=== PATIENT | female | born 1975 | race Caucasian/White ===

== ENCOUNTER 2017-09-24 13:19 | Emergency (ER) | payer MEDICAID ==
[2017-09-24] MEDS ORDERED: Sodium Chloride 0.9% 1,000 ML IV ONE (14:13)
[2017-09-24] MEDS ORDERED: Ondansetron 4 MG/2 ML SDV IVPUSH ONE (14:14)
[2017-09-24] MEDS ORDERED: methylPREDNISolone Sodium Succinate 125 MG/2 ML SDV IVPUSH ONE (14:15)
[2017-09-24] MEDS ORDERED: Ketorolac 30 MG/ML SDV ONE (14:18)
[2017-09-24 15:20] LABS: CHLORIDE,CL 102 mmol/L (98-115); SODIUM,NA 138 mmol/L (136-145)
[2017-09-24] MEDS ORDERED: HYDROmorphone 2 MG/ML SDV ONE (17:04)
[2017-09-24] MEDS ORDERED: HYDROmorphone 2 MG/ML SDV IVPUSH ONE (17:05)
[2017-09-24] MEDS ORDERED: Ondansetron 4 MG Tab.DIS ONE (18:01)
[2017-09-24] MEDS ORDERED: Ondansetron 4 MG Tab.DIS PO PRN (18:03)
--- NOTE | 2017-09-24 21:43 | EDM.PDOC ---
ED HPI GENERAL MEDICAL PROBLEM - General Chief Complaint: Abdominal Pain Stated Complaint: CHRON'S FLAIR UP Time Seen by Provider: 09/24/17 13:30 Source of Information: Reports: Patient History Limitations: Reports: No Limitations - History of Present Illness INITIAL COMMENTS - FREE TEXT/NARRATIVE: 6-year-old female presents to the emergency room brought in by her friend today with complaints of chronic abdominal pain that has gotten worse over the last 24 hours with associated nausea and vomiting and mild fever. Patient was recently diagnosed with Crohn's disease this past May she was started on oral prednisone and now is tapering down currently on 20 mg of prednisone daily. She does take hydrocodone for her abdominal pain. She has been seen by core blower who has essentially taken her off all her medications except the prednisone and is reevaluating her testing and findings next week. She does state that she does smoke marijuana in order to help some abdominal pain. She had a recent CT scan couple months ago while being evaluated in the ER. She denies bloody stools denies current diarrhea. She does notice that when she feels she has to have a bowel movement she only has mucus. She has not had much of an appetite today. She denies any recent or current infections. No upper respiratory complaints. She feels that she is dehydrated as she has not been able to keep much for fluids down today. She is complaining mainly of nausea at this time. She has not had any vomiting episodes since this morning. Onset: Gradual Duration: Chronic, Getting Worse Location: Reports: Abdomen Quality: Reports: Ache Severity: Moderate Improves with: Reports: Medication Associated Symptoms: Reports: Fever/Chills, Nausea/Vomiting Treatments OFFICER CAPTAIN: Reports: Other Medication(s) (norco, prednisone) - Related Data Allergies Allergy/AdvReac Type Severity Reaction Status Date / Time metronidazole [From Flagyl] Allergy Nausea and Verified 09/24/17 13:38 Vomiting morphine Allergy Hives Verified 09/24/17 13:38 Home Meds: Home Meds Hydrocodone/Acetaminophen [Hydrocodon-Acetaminophn 10-325] 1 tab PO Q4H PRN 01/02 [History] Prednisone [IJD: predniSONE] 20 mg PO ASDIRECTED 07/22/17 [History] Promethazine [Phenergan] 25 mg PO Q4H PRN 07/22/17 [History] busPIRone [Buspar] 5 mg PO BID 12/08/17 [History] Dicyclomine [Bentyl] 20 mg PO BID PRN 09/24/17 [History] Past Medical History Gastrointestinal History: Reports: Diverticulosis, Irritable Bowel Syndrome, Other (See Below) Other Gastrointestinal History: 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 2016 by core blower in [place], [place] 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 Denies: Chills, Diaphoresis HEENT: Reports: No Symptoms Respiratory: Reports: No Symptoms Cardiovascular: Reports: No Symptoms Endocrine: Reports: Fatigue. Denies: High Glucose GI/Abdominal: Reports: Abdominal Pain, Nausea, Vomiting. Denies: Black Stool, Bloody Stool, Diarrhea, Distension : Denies: Dysuria, Flank Pain, Hematuria Skin: Reports: No Symptoms Neurological: Reports: No Symptoms Psychiatric: Reports: No Symptoms Immunologic: Reports: No Symptoms ED EXAM, GI/ABD - Physical Exam Exam: See Below Exam Limited By: No Limitations General Appearance: Alert, WD/WN, No Apparent Distress Eyes: Bilateral: EOMI Ears: Normal External Exam Nose: Normal Inspection Throat/Mouth: Normal Inspection, Normal Oropharynx, Normal Voice, No Airway Compromise Head: Atraumatic, Normocephalic Neck: Normal Inspection, Supple, Non-Tender, Full Range of Motion. No: Lymphadenopathy (L), Lymphadenopathy (R) Respiratory/Chest: No Respiratory Distress, Lungs Clear Cardiovascular: Normal Peripheral Pulses, Regular Rate, Rhythm, No Murmur GI/Abdominal Exam: Normal Bowel Sounds, No Distention, No Mass, Tender (left lower quadrant) Back Exam: Normal Inspection Extremities: Normal Inspection, Normal Range of Motion, No Pedal Edema Neurological: Alert, Oriented, No Motor/Sensory Deficits Psychiatric: Normal Affect, Depressed Mood Skin Exam: Warm, Dry, Intact, No Rash, Ecchymosis Lymphatic: No Adenopathy Course - Vital Signs Last Recorded V/S: Last Vital Signs Temp 99.3 F 09/24/17 13:38 Pulse 100 09/24/17 13:38 Resp 20 09/24/17 13:38 BP 114/69 09/24/17 13:38 Pulse Ox 96 09/24/17 13:38 - Orders/Labs/Meds Orders: Active Orders 24 hr Category Date Time Status Ondansetron [Zofran ODT] Med 09/24/17 18:03 Active 4 mg PO Q6H PRN Medication Orders Ondansetron HCl (Zofran Odt) 4 mg PO Q6H PRN PRN Reason: Nausea/Vomiting Last Admin: 09/24/17 18:04 Dose: 4 mg Labs: Laboratory Tests 09/24/17 09/24/17 09/24/17 Range/Units 14:32 14:32 15:10 WBC 14.6 H (5.0-10.0) 10^3/uL RBC 4.85 (3.80-5.50) 10^6/uL Hgb 14.1 (12.0-16.0) g/dL Hct 43.8 (37.0-47.0) % MCV 90.3 (82.0-92.0) fL MCH 29.1 (27.0-31.0) pg MCHC 32.2 (32.0-36.0) g/dL RDW 13.6 (11.5-14.5) % Plt Count 205 (150-300) 10^3/uL MPV 7.3 L (7.4-10.4) fL Neut % (Auto) 91.9 H (50.0-70.0) % Lymph % (Auto) 7.2 L (20.0-40.0) % [place] % (Auto) 0.4 L (2.0-8.0) % Eos % (Auto) 0.1 L (1.0-3.0) % Baso % (Auto) 0.4 (0.0-1.0) % Neut # (Auto) 13.3 H (2.5-7.0) 10^3/uL Lymph # (Auto) 1.1 (1.0-4.0) 10^3/uL [place] # (Auto) 0.1 (0.1-0.8) 10^3/uL Eos # (Auto) 0.0 L (0.1-0.3) 10^3/uL Baso # (Auto) 0.1 (0.0-0.1) 10^3/uL Sodium 138 (136-145) mmol/L Potassium 4.6 (3.3-5.3) mmol/L Chloride 102 (98-115) mmol/L Carbon Dioxide 26.8 (21.0-32.0) mmol/L BUN 7 (6-25) mg/dL Creatinine 0.53 (0.51-1.17) mg/dL Est Cr Clr Drug Dosing TNP Estimated GFR (MDRD) > 60 mL/min Glucose 127 H (70-110) mg/dL Calcium 9.0 (8.7-10.3) mg/dL Total Bilirubin 0.2 (0.2-1.0) mg/dL AST 13 L (15-37) U/L ALT 14 (12-78) U/L Alkaline Phosphatase 75 (46-116) IU/L Total Protein 7.3 (6.4-8.2) g/dL Albumin 3.16 (3.00-4.80) g/dL Amylase 59 (25-125) U/L Lipase 103 (73-393) U/L Specimen Type Urincc Urine Color Yellow (YELLOW) Urine Appearance Clear (CLEAR) Urine pH 8.5 (5.0-9.0) Ur Specific [place] 1.015 (1.005-1.030) Urine Protein Negative (NEGATIVE) mg/dL Urine Glucose (UA) Negative (NEGATIVE) mg/dL Urine Ketones Negative (NEGATIVE) mg/dL Urine Occult Blood Negative (NEGATIVE) Urine Nitrite Negative (NEGATIVE) Urine Bilirubin Negative (NEGATIVE) Urine Urobilinogen 0.2 (0.2-1.0) E.U./dL Ur Leukocyte Esterase Negative (NEGATIVE) Urine RBC Not seen /HPF Urine WBC 0-5 /HPF Ur Epithelial Cells Rare /LPF Urine Bacteria Not seen (NONE TO FEW) /HPF Urine Opiates Screen (NEGATIVE) Ur Oxycodone Screen (NEGATIVE) Urine Methadone Screen (NEGATIVE) Ur Propoxyphene Screen (NEGATIVE) Ur Barbiturates Screen (NEGATIVE) Ur Tricyclics Screen (NEGATIVE) Ur Phencyclidine Scrn (NEGATIVE) Ur Amphetamine Screen (NEGATIVE) U Methamphetamines Scrn (NEGATIVE) U Benzodiazepines Scrn (NEGATIVE) U Cocaine Metab Screen (NEGATIVE) U Marijuana (THC) Screen (NEGATIVE) 09/24/17 Range/Units 15:10 WBC (5.0-10.0) 10^3/uL RBC (3.80-5.50) 10^6/uL Hgb (12.0-16.0) g/dL Hct (37.0-47.0) % MCV (82.0-92.0) fL MCH (27.0-31.0) pg MCHC (32.0-36.0) g/dL RDW (11.5-14.5) % Plt Count (150-300) 10^3/uL MPV (7.4-10.4) fL Neut % (Auto) (50.0-70.0) % Lymph % (Auto) (20.0-40.0) % [place] % (Auto) (2.0-8.0) % Eos % (Auto) (1.0-3.0) % Baso % (Auto) (0.0-1.0) % Neut # (Auto) (2.5-7.0) 10^3/uL Lymph # (Auto) (1.0-4.0) 10^3/uL [place] # (Auto) (0.1-0.8) 10^3/uL Eos # (Auto) (0.1-0.3) 10^3/uL Baso # (Auto) (0.0-0.1) 10^3/uL Sodium (136-145) mmol/L Potassium (3.3-5.3) mmol/L Chloride (98-115) mmol/L Carbon Dioxide (21.0-32.0) mmol/L BUN (6-25) mg/dL Creatinine (0.51-1.17) mg/dL Est Cr Clr Drug Dosing Estimated GFR (MDRD) mL/min Glucose (70-110) mg/dL Calcium (8.7-10.3) mg/dL Total Bilirubin (0.2-1.0) mg/dL AST (15-37) U/L ALT (12-78) U/L Alkaline Phosphatase (46-116) IU/L Total Protein (6.4-8.2) g/dL Albumin (3.00-4.80) g/dL Amylase (25-125) U/L Lipase (73-393) U/L Specimen Type Urine Color (YELLOW) Urine Appearance (CLEAR) Urine pH (5.0-9.0) Ur Specific [place] (1.005-1.030) Urine Protein (NEGATIVE) mg/dL Urine Glucose (UA) (NEGATIVE) mg/dL Urine Ketones (NEGATIVE) mg/dL Urine Occult Blood (NEGATIVE) Urine Nitrite (NEGATIVE) Urine Bilirubin (NEGATIVE) Urine Urobilinogen (0.2-1.0) E.U./dL Ur Leukocyte Esterase (NEGATIVE) Urine RBC /HPF Urine WBC /HPF Ur Epithelial Cells /LPF Urine Bacteria (NONE TO FEW) /HPF Urine Opiates Screen Positive H (NEGATIVE) Ur Oxycodone Screen Negative (NEGATIVE) Urine Methadone Screen Negative (NEGATIVE) Ur Propoxyphene Screen Negative (NEGATIVE) Ur Barbiturates Screen Negative (NEGATIVE) Ur Tricyclics Screen Negative (NEGATIVE) Ur Phencyclidine Scrn Negative (NEGATIVE) Ur Amphetamine Screen Negative (NEGATIVE) U Methamphetamines Scrn Negative (NEGATIVE) U Benzodiazepines Scrn Positive H (NEGATIVE) U Cocaine Metab Screen Negative (NEGATIVE) U Marijuana (THC) Screen Positive H (NEGATIVE) Meds: Medications Generic Name Dose Route Start Last Admin Trade Name Freq PRN Reason Stop Dose Admin Ondansetron HCl 4 mg 09/24/17 18:03 09/24/17 18:04 Zofran Odt PO 4 mg Q6H PRN Administration Nausea/Vomiting Discontinued Medications Generic Name Dose Route Start Last Admin Trade Name Freq PRN Reason Stop Dose Admin Hydromorphone HCl 2 mg 09/24/17 17:05 09/24/17 17:07 Dilaudid IVPUSH 09/24/17 17:06 2 mg ONETIME ONE Administration Hydromorphone HCl Confirm 09/24/17 17:04 Dilaudid Administered 09/24/17 17:05 Dose 2 mg .ROUTE .STK-MED ONE Sodium Chloride 1,000 mls @ 1,000 mls/hr 09/24/17 14:13 09/24/17 14:48 Normal Saline IV 09/24/17 15:12 1,000 mls/hr .BOLUS ONE Administration Ketorolac Tromethamine 30 mg 09/24/17 14:18 Toradol .ROUTE 09/24/17 14:19 .STK-MED ONE Methylprednisolone Sodium Succinate 125 mg 09/24/17 14:15 09/24/17 14:49 Solu-Medrol IVPUSH 09/24/17 14:16 125 mg ONETIME ONE Administration Ondansetron HCl 8 mg 09/24/17 14:14 09/24/17 14:48 Zofran IVPUSH 09/24/17 14:15 8 mg ONETIME ONE Administration Ondansetron HCl Confirm 09/24/17 18:01 Zofran Odt Administered 09/24/17 18:02 Dose 12 mg .ROUTE .STK-MED ONE - Re-Assessments/Exams Free Text/Narrative Re-Assessment/Exam: 09/24/17 1 L normal saline IV fluids was given. Toradol 30mg IV was given patient reports that her pain improved to a 6 out of 10. On arrival she felt her pain was an 8 out of 10 2 mg of IV Dilaudid was given and patient now states that her pain was significantly improved at 1 out of 10. Departure - Departure Time of Disposition: 18:10 Disposition: Home, Self-Care 01 Condition: Fair Clinical Impression: Abdominal pain despite therapy for Crohn's disease Vomiting Qualifiers: Vomiting type: unspecified Vomiting Intractability: non-intractable Nausea presence: with nausea Qualified Code(s): R11.2 - Nausea with vomiting, unspecified - Discharge Information Instructions: Abdominal Pain, Adult, [id number], Nausea and Vomiting, Adult, [id number] Referrals: Shannan Nelson PA-C [Primary Care Provider] - Forms: ED Department Discharge Additional Instructions: 1. Rest, encourage continuing with oral hydration. 2. Zofran 4 mg ODT as needed for nausea. 3. Continue with her medications as prescribed 4. Follow-up appointment with your gravel machine operator next week as scheduled. - My Orders Last 24 Hours: My Active Orders 09/24/17 18:03 Ondansetron [Zofran ODT] 4 mg PO Q6H PRN - Assessment/Plan Last 24 Hours: My Active Orders 09/24/17 18:03 Ondansetron [Zofran ODT] 4 mg PO Q6H PRN Assessment:: Abdominal pain Nausea vomiting History of Crohn's disease Plan: 1. Rest, encourage continuing with oral hydration. 2. Zofran 4 mg ODT as needed for nausea. 3. Continue with her medications as prescribed 4. Follow-up appointment with your gravel machine operator next week as scheduled.
== END 2017-09-24 18:10 | disposition home or self-care (01) ==
LOC: KA.ED 13:19
DX: K50.90 Crohn's disease, unspecified, without complications (principal); F17.210 Nicotine dependence, cigarettes, uncomplicated; Z88.5 Allergy status to narcotic agent; Z88.8 Allergy status to other drugs, medicaments and biological substances
CPT/HCPCS: 36415; 80053; 80305; 81001; 82150; 83690; 85025; 96361; 96374; 96375; 99284; A9270; J1170; J2405; J2930; J7030

== ENCOUNTER 2017-10-12 08:47 | Emergency (ER) | payer MEDICAID ==
[2017-10-12] MEDS ORDERED: Sodium Chloride 0.9% 1,000 ML IV ONE ×2 (08:59→11:36)
[2017-10-12] MEDS ORDERED: Sodium Chloride 0.9% 5 ML Syringe FLUSH PRN (08:59)
[2017-10-12] MEDS ORDERED: Ondansetron 4 MG/2 ML SDV IVPUSH ONE (09:03)
[2017-10-12] MEDS ORDERED: HYDROmorphone 1 MG/ML Syringe IVPUSH ONE (09:03)
--- NOTE | 2017-10-12 09:03 | EDM.PDOC ---
<BlakeFredy pandya - Last Filed: 10/12/17 09:32> ED HPI GENERAL MEDICAL PROBLEM - General Chief Complaint: Abdominal Pain Stated Complaint: abdominal pain Time Seen by Provider: 10/12/17 08:58 Source of Information: Reports: Patient - History of Present Illness INITIAL COMMENTS - FREE TEXT/NARRATIVE: 42 YO WF with PMH of IBS who had a colonoscopy 10/09/2017 in [place] and has confirmed Crohn's dz after biopsy. Pt complaining of LLQ abdominal pain with vomiting since her colonscopy. Pt reports this is the same pain she has when she develops her IBS exacerbations/flares. Pt reports fever/chills at home. Pt denies any bloody or dark stools. Pt reports she is able to pass gas but no bowel movements since colonoscope 3 days ago. Onset Date: 10/09/17 Duration: Day(s): (3) Location: Reports: Abdomen Quality: Reports: Ache Severity: Moderate Improves with: Reports: Rest Worsens with: Reports: Movement Associated Symptoms: Reports: Fever/Chills, Nausea/Vomiting Abdominal Pain Score (Numeric/FACES): 10 - Related Data Allergies Allergy/AdvReac Type Severity Reaction Status Date / Time metronidazole [From Flagyl] Allergy Nausea and Verified 10/12/17 09:07 Vomiting morphine Allergy Headache Verified 10/12/17 09:08 Home Meds: Home Meds Hydrocodone/Acetaminophen [Hydrocodon-Acetaminophn 10-325] 1 tab PO Q4H PRN 01/02 [History] Prednisone [IJD: predniSONE] 20 mg PO ASDIRECTED 07/22/17 [History] Promethazine [Phenergan] 25 mg PO Q4H PRN 07/22/17 [History] busPIRone [Buspar] 5 mg PO BID 08/25/17 [History] Dicyclomine [Bentyl] 20 mg PO BID PRN 09/24/17 [History] Past Medical History Gastrointestinal History: Reports: Diverticulosis, Irritable Bowel Syndrome, Other (See Below) Other Gastrointestinal History: 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 2016 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 in [place], [place] [employer] History: Reports: Psychiatric History: Reports: Anxiety - Past Surgical History GI Surgical History: Reports: Colonoscopy Social & Family History - Tobacco Use Smoking Status *Q: Unknown Ever Smoked Years of Tobacco use: 25 Packs/Tins Daily: 0.5 Second Hand Smoke Exposure: Yes - Caffeine Use Caffeine Use: Reports: None Caffeine Use Comment: did not ask - Recreational Drug Use Recreational Drug Use: Yes Drug Use in Last 12 Months: No Recreational Drug Type: Reports: Marijuana/Hashish Recreational Drug Use Frequency: Socially ED ROS GENERAL - Review of Systems Review Of Systems: See Below Constitutional: Reports: Fever, Chills, Malaise Respiratory: Reports: No Symptoms Cardiovascular: Reports: No Symptoms Endocrine: Reports: No Symptoms GI/Abdominal: Reports: Abdominal Pain (LLQ), Nausea, Vomiting : Reports: No Symptoms Musculoskeletal: Reports: No Symptoms Skin: Reports: No Symptoms Neurological: Reports: No Symptoms Psychiatric: Reports: No Symptoms Hematologic/Lymphatic: Reports: No Symptoms Immunologic: Reports: No Symptoms ED EXAM, GI/ABD - Physical Exam Exam: See Below Exam Limited By: No Limitations General Appearance: Alert, WD/WN, No Apparent Distress Head: Atraumatic, Normocephalic Neck: Normal Inspection, Supple, Non-Tender, Full Range of Motion Respiratory/Chest: No Respiratory Distress, Lungs Clear, Normal Breath Sounds, No Accessory Muscle Use, Chest Non-Tender Cardiovascular: Normal Peripheral Pulses, Regular Rate, Rhythm, No Edema, No Gallop, No JVD, No Murmur, No Rub GI/Abdominal Exam: Normal Bowel Sounds, Soft, No Organomegaly, No Distention, No Abnormal Bruit, No Mass, Pelvis Stable, Tender (LLQ) Back Exam: Normal Inspection, Full Range of Motion, NT Extremities: Normal Inspection, Normal Range of Motion, Non-Tender, Normal Capillary Refill, No Pedal Edema Neurological: Alert, Oriented, CN II-XII Intact, Normal Cognition, Normal Gait, Normal Reflexes, No Motor/Sensory Deficits Psychiatric: Normal Affect, Normal Mood Skin Exam: Warm, Dry, Intact, Normal Color, No Rash Lymphatic: No Adenopathy Course - Vital Signs Last Recorded V/S: Last Vital Signs Temp 97.8 F 10/12/17 09:09 Pulse 77 10/12/17 11:48 Resp 18 10/12/17 11:48 BP 109/61 10/12/17 11:48 Pulse Ox 96 10/12/17 11:48 - Orders/Labs/Meds Orders: Active Orders 24 hr Category Date Time Status Peripheral IV Care [RC] . DIRECTED Care 10/12/17 08:59 Active Abdomen Pelvis w Cont [CT] Stat Exams 10/12/17 09:03 Taken Ciprofloxacin in D5W [Cipro in D5W 400 MG/200 ML] 400 Med 10/12/17 12:47 Ordered mg Premix Bag 1 bag IV ONETIME HYDROmorphone [Dilaudid] Med 10/12/17 10:45 Active 1 mg IVPUSH ONETIME Ketorolac [Toradol] Med 10/12/17 10:45 Active 30 mg IVPUSH ONETIME Ondansetron [Zofran] Med 10/12/17 10:45 Active 4 mg IVPUSH ONETIME Sodium Chloride 0.9% [Normal Saline] 250 ml Med 10/12/17 13:00 Active IV ASDIRECTED Sodium Chloride 0.9% [Syrex Flush] Med 10/12/17 08:59 Active 5 ml FLUSH Q8HR PRN metroNIDAZOLE/Normal Saline [Flagyl 500 MG in NS 100 ML Med 10/12/17 12:47 Ordered ] 500 mg Premix Bag 1 bag IV ONETIME Peripheral IV Insertion Adult [OM.PC] Routine Oth 10/12/17 08:59 Ordered Medication Orders Hydromorphone HCl (Dilaudid) 1 mg IVPUSH ONETIME [facility] Last Admin: 10/12/17 10:53 Dose: 1 mg Ciprofloxacin/Dextrose 400 mg/ (Premix) 200 mls @ 200 mls/hr IV ONETIME ONE Stop: 10/12/17 13:46 Metronidazole 500 mg/ Premix 100 mls @ 100 mls/hr IV ONETIME ONE Stop: 10/12/17 13:46 Last Admin: 10/12/17 12:52 Dose: 100 mls/hr Sodium Chloride (Normal Saline) 250 mls @ 125 mls/hr IV ASDIRECTED DESTINY Last Admin: 10/12/17 12:56 Dose: 125 mls/hr Ketorolac Tromethamine (Toradol) 30 mg IVPUSH ONETIME DESTINY Last Admin: 10/12/17 10:46 Dose: 30 mg Ondansetron HCl (Zofran) 4 mg IVPUSH ONETIME DESTINY Last Admin: 10/12/17 10:42 Dose: 4 mg Sodium Chloride (Syrex Flush) 5 ml FLUSH Q8HR PRN PRN Reason: Keep Vein Open Labs: Laboratory Tests 10/12/17 10/12/17 10/12/17 Range/Units 09:15 09:15 09:15 WBC 11.7 H (5.0-10.0) 10^3/uL RBC 4.76 (3.80-5.50) 10^6/uL Hgb 14.4 (12.0-16.0) g/dL Hct 40.0 (37.0-47.0) % MCV 84.2 (82.0-92.0) fL MCH 30.4 (27.0-31.0) pg MCHC 36.1 H (32.0-36.0) g/dL RDW 12.9 (11.5-14.5) % Plt Count 231 (150-300) 10^3/uL MPV 6.5 L (7.4-10.4) fL Add Manual Diff Yes Neutrophils % (Manual) 66 (50-70) % Lymphocytes % (Manual) 24 (20-40) % Monocytes % (Manual) 10 H (2-8) % Sodium 143 (136-145) mmol/L Potassium 3.6 (3.3-5.3) mmol/L Chloride 105 (98-115) mmol/L Carbon Dioxide 27.3 (21.0-32.0) mmol/L BUN 6 (6-25) mg/dL Creatinine 0.55 (0.51-1.17) mg/dL Est Cr Clr Drug Dosing 97.66 mL/min Estimated GFR (MDRD) > 60 mL/min Glucose 97 (70-110) mg/dL Calcium 8.9 (8.7-10.3) mg/dL Total Bilirubin 0.1 L (0.2-1.0) mg/dL AST 14 L (15-37) U/L ALT 16 (12-78) U/L Alkaline Phosphatase 63 (46-116) IU/L C-Reactive Protein 2.5 H (0.0-0.9) mg/dL Total Protein 6.7 (6.4-8.2) g/dL Albumin 2.96 L (3.00-4.80) g/dL Lipase 191 (73-393) U/L HCG, Qual Negative (NEGATIVE) Specimen Type Urine Color (YELLOW) Urine Appearance (CLEAR) Urine pH (5.0-9.0) Ur Specific [place] (1.005-1.030) Urine Protein (NEGATIVE) mg/dL Urine Glucose (UA) (NEGATIVE) mg/dL Urine Ketones (NEGATIVE) mg/dL Urine Occult Blood (NEGATIVE) Urine Nitrite (NEGATIVE) Urine Bilirubin (NEGATIVE) Urine Urobilinogen (0.2-1.0) E.U./dL Ur Leukocyte Esterase (NEGATIVE) Urine RBC /HPF Urine WBC /HPF Ur Epithelial Cells /LPF Urine Bacteria (NONE TO FEW) /HPF Urine Yeast (NEGATIVE) /HPF 10/12/17 Range/Units 11:05 WBC (5.0-10.0) 10^3/uL RBC (3.80-5.50) 10^6/uL Hgb (12.0-16.0) g/dL Hct (37.0-47.0) % MCV (82.0-92.0) fL MCH (27.0-31.0) pg MCHC (32.0-36.0) g/dL RDW (11.5-14.5) % Plt Count (150-300) 10^3/uL MPV (7.4-10.4) fL Add Manual Diff Neutrophils % (Manual) (50-70) % Lymphocytes % (Manual) (20-40) % Monocytes % (Manual) (2-8) % Sodium (136-145) mmol/L Potassium (3.3-5.3) mmol/L Chloride (98-115) mmol/L Carbon Dioxide (21.0-32.0) mmol/L BUN (6-25) mg/dL Creatinine (0.51-1.17) mg/dL Est Cr Clr Drug Dosing mL/min Estimated GFR (MDRD) mL/min Glucose (70-110) mg/dL Calcium (8.7-10.3) mg/dL Total Bilirubin (0.2-1.0) mg/dL AST (15-37) U/L ALT (12-78) U/L Alkaline Phosphatase (46-116) IU/L C-Reactive Protein (0.0-0.9) mg/dL Total Protein (6.4-8.2) g/dL Albumin (3.00-4.80) g/dL Lipase (73-393) U/L HCG, Qual (NEGATIVE) Specimen Type Urinvoid Urine Color Yellow (YELLOW) Urine Appearance Clear (CLEAR) Urine pH 5.5 (5.0-9.0) Ur Specific [place] 1.010 (1.005-1.030) Urine Protein Negative (NEGATIVE) mg/dL Urine Glucose (UA) Negative (NEGATIVE) mg/dL Urine Ketones Negative (NEGATIVE) mg/dL Urine Occult Blood Negative (NEGATIVE) Urine Nitrite Negative (NEGATIVE) Urine Bilirubin Negative (NEGATIVE) Urine Urobilinogen 0.2 (0.2-1.0) E.U./dL Ur Leukocyte Esterase Negative (NEGATIVE) Urine RBC 0-5 /HPF Urine WBC 0-5 /HPF Ur Epithelial Cells Few /LPF Urine Bacteria Rare (NONE TO FEW) /HPF Urine Yeast Few H (NEGATIVE) /HPF Meds: Medications Generic Name Dose Route Start Last Admin Trade Name Freq PRN Reason Stop Dose Admin Hydromorphone HCl 1 mg 10/12/17 10:45 10/12/17 10:53 Dilaudid IVPUSH 1 mg ONETIME DESTINY Administration Ciprofloxacin/Dextrose 400 mg/ 200 mls @ 200 mls/hr 10/12/17 12:47 Premix IV 10/12/17 13:46 ONETIME ONE Metronidazole 500 mg/ Premix 100 mls @ 100 mls/hr 10/12/17 12:47 10/12/17 12: 52 IV 10/12/17 13:46 100 mls/hr ONETIME ONE Administration Sodium Chloride 250 mls @ 125 mls/hr 10/12/17 13:00 10/12/17 12:56 Normal Saline IV 125 mls/hr ASDIRECTED DESTINY Administration Ketorolac Tromethamine 30 mg 10/12/17 10:45 10/12/17 10:46 Toradol IVPUSH 30 mg ONETIME DESTINY Administration Ondansetron HCl 4 mg 10/12/17 10:45 10/12/17 10:42 Zofran IVPUSH 4 mg ONETIME DESTINY Administration Sodium Chloride 5 ml 10/12/17 08:59 Syrex Flush FLUSH Q8HR PRN Keep Vein Open Discontinued Medications Generic Name Dose Route Start Last Admin Trade Name Freq PRN Reason Stop Dose Admin Hydromorphone HCl 1 mg 10/12/17 09:03 10/12/17 09:25 Dilaudid IVPUSH 10/12/17 09:04 1 mg ONETIME ONE Administration Sodium Chloride 1,000 mls @ 999 mls/hr 10/12/17 08:59 10/12/17 09:22 Normal Saline IV 10/12/17 09:59 999 mls/hr .BOLUS ONE Administration Sodium Chloride 1,000 mls @ 999 mls/hr 10/12/17 11:36 10/12/17 11:38 Normal Saline IV 10/12/17 12:36 999 mls/hr .BOLUS ONE Administration Ondansetron HCl 4 mg 10/12/17 09:03 10/12/17 09:23 Zofran IVPUSH 10/12/17 09:04 4 mg ONETIME ONE Administration Departure - Departure Time of Disposition: 09:34 Disposition: Home, Self-Care 01 Clinical Impression: Acute left lower quadrant pain Crohn's colitis Qualifiers: Digestive disease complication type: with abscess Qualified Code(s): K50.114 - Crohn's disease of large intestine with abscess - Discharge Information Referrals: Shannan Nelson PA-C [Primary Care Provider] - Forms: ED Department Discharge Additional Instructions: 1. Take the medications as directed and discussed. Try to avoid using the Tramadol if possible to avoid increased risk of obstruction from constipation. 2. Take Zofran as needed for nausea and vomiting and prior to taking the Metronidazole. 3. Clear liquid diet for two more days. 4. Call the GI clinic on Monday with update and their recommendation at that point. 5. Follow up with GI in two weeks or as instructed by them. - My Orders Last 24 Hours: My Active Orders 10/12/17 10:45 HYDROmorphone [Dilaudid] 1 mg IVPUSH ONETIME Ketorolac [Toradol] 30 mg IVPUSH ONETIME Ondansetron [Zofran] 4 mg IVPUSH ONETIME 10/12/17 12:47 Ciprofloxacin in D5W [Cipro in D5W 400 MG/200 ML] 400 mg Premix Bag 1 bag IV ONETIME metroNIDAZOLE/Normal Saline [Flagyl 500 MG in NS 100 ML] 500 mg Premix Bag 1 bag IV ONETIME 10/12/17 13:00 Sodium Chloride 0.9% [Normal Saline] 250 ml IV ASDIRECTED - Assessment/Plan Last 24 Hours: My Active Orders 10/12/17 10:45 HYDROmorphone [Dilaudid] 1 mg IVPUSH ONETIME Ketorolac [Toradol] 30 mg IVPUSH ONETIME Ondansetron [Zofran] 4 mg IVPUSH ONETIME 10/12/17 12:47 Ciprofloxacin in D5W [Cipro in D5W 400 MG/200 ML] 400 mg Premix Bag 1 bag IV ONETIME metroNIDAZOLE/Normal Saline [Flagyl 500 MG in NS 100 ML] 500 mg Premix Bag 1 bag IV ONETIME 10/12/17 13:00 Sodium Chloride 0.9% [Normal Saline] 250 ml IV ASDIRECTED Assessment:: 1. Abdominal pain- discussed with ER provider- Cuong Minaya- awaiting labs, CT abd/pelvis. <Gonzalo Minaya D - Last Filed: 10/12/17 13:30> ED EXAM, GI/ABD - Physical Exam Eyes: Bilateral: Normal Appearance, EOMI Throat/Mouth: Normal Lips, Normal Voice, No Airway Compromise Course - Re-Assessments/Exams Free Text/Narrative Re-Assessment/Exam: 10/12/17 11:37 [facility] Patient tells me she hasn't eaten anything for the last 4 days and has no appetite. She was clear liquid only on Monday (colonoscopy prep). Had the colonoscopy on Monday (10/10). She's had known Crohns since May when it was diagnosed along with Ulcerative Colitis and Diverticulitis in [place]. She's been on Prednisone 40 mg daily and they tried another medication (?) which didn't work so resumed the prednisone for awhile. Last evening she tried some beef broth and 7-up but couldn't keep them down. She has drank about 16-20 oz of water daily since the colonoscopy. She is passing lots of gas. No bowel movements but she had the urge several times this morning but only a little mucus on the toilet paper. She only urinates twice a day now. She keeps some water down with Zofran ODT. Compazine didn't help because she vomited it up right away. Re-examination of abdomen reveals tenderness throughout primarily extending from LLQ. Bowel sounds are very active in LLQ. CT shows: evidence of active Crohn's and abscess or dilated loop of bowel in pelvis. The first dose of Dilaudid dropped pain from 10 to 6 and then after the CT back up to 8. After second dose of Dilaudid along with Toradol pain is 4-5. Vitals are stable and patient is afebrile in ER but says yesterday at home she had 99-100 temp. 10/12/17 12:49 I discussed case with JAQUELINE Shaver at [facility] in [place] with Dr. Leslie. This is patient's GI provider. Not knowing for sure if there is an abscess they want to cover with antibiotics but also feel that the CT findings are entirely as expected with her Crohn's. They recommended a regimen of Cipro and Metronidazole along with her daily Prednisone 40 mg, clear liquid diet for 2 more days, Tylenol prn, no narcotics to avoid constipation/ obstruction (occasional Tramadol if absolutely necessary), call them on Monday and return to see them in two weeks. Patient has N/V with oral metronidazole but the GI provider wants her to still take it using nausea medication. I discussed with patient that this is the plan GI recommends to get through this Crohn's flare and hopefully it will be more manageable and tolerable in the near future. She verbalizes understanding. 10/12/17 13:30 Patient discharged in stable condition. Departure - Departure Time of Disposition: 13:28 Condition: Good
[2017-10-12 09:47] LABS: CHLORIDE,CL 105 mmol/L (98-115); SODIUM,NA 143 mmol/L (136-145)
[2017-10-12] MEDS ORDERED: Ondansetron 4 MG/2 ML SDV IVPUSH SCH (10:45)
[2017-10-12] MEDS ORDERED: HYDROmorphone 1 MG/ML Syringe IVPUSH SCH (10:45)
[2017-10-12] MEDS ORDERED: Ketorolac 30 MG/ML SDV IVPUSH SCH (10:45)
[2017-10-12] MEDS ORDERED: metroNIDAZOLE/Normal Saline 500 MG in Premix Bag 1 BAG IV ONE (12:47)
[2017-10-12] MEDS ORDERED: Ciprofloxacin in D5W 400 MG in Premix Bag 1 BAG IV ONE ×2 (12:47)
[2017-10-12] MEDS ORDERED: Sodium Chloride 0.9% 250 ML IV SCH (13:00)
[2017-10-12] MEDS ORDERED: Ondansetron 4 MG Tab.DIS PO SCH (14:45)
== END 2017-10-12 15:20 | disposition home or self-care (01) ==
LOC: KA.ED 08:47
DX: K50.114 Crohn's disease of large intestine with abscess (principal); Z88.1 Allergy status to other antibiotic agents; Z88.5 Allergy status to narcotic agent
CPT/HCPCS: 36415; 74177; 80053; 81001; 83690; 84703; 85025; 86140; 96361; 96374; 96375; 96376; 99284; J0744; J1170; J1885; J2405; J7030; J7050

== ENCOUNTER 2017-10-15 20:55 | Emergency (ER) | payer MEDICAID ==
[2017-10-15] MEDS ORDERED: Ondansetron 4 MG/2 ML SDV IVPUSH ONE (21:28)
[2017-10-15] MEDS ORDERED: Ketorolac 30 MG/ML SDV IVPUSH ONE (21:28)
--- NOTE | 2017-10-15 21:29 | EDM.PDOC ---
ED HPI GENERAL MEDICAL PROBLEM - General Chief Complaint: Abdominal Pain Stated Complaint: abd pain Time Seen by Provider: 10/15/17 21:10 Source of Information: Reports: Patient, Family (mom) History Limitations: Reports: No Limitations - History of Present Illness INITIAL COMMENTS - FREE TEXT/NARRATIVE: Patient presents with continuing LLQ abdominal pain related to Crohn's exacerbation. She was here 3 days ago with this and has been using the Tramadol and Zofran vs Promethazine but this evening the pain is worse. She has been passing small amounts of stool 5-6 times a day and eating a little mostly crackers and some pork roast. She has vomited a couple times too. Abdomen Pain Score (Numeric/FACES): 10 - Related Data Allergies Allergy/AdvReac Type Severity Reaction Status Date / Time metronidazole [From Flagyl] Allergy Nausea and Verified 10/15/17 20:58 Vomiting morphine Allergy Headache Verified 10/15/17 20:58 Home Meds: Home Meds Hydrocodone/Acetaminophen [Hydrocodon-Acetaminophn 10-325] 1 tab PO Q4H PRN 01/02 [History] Prednisone [IJD: predniSONE] 20 mg PO ASDIRECTED 07/22/17 [History] Promethazine [Phenergan] 25 mg PO Q4H PRN 07/22/17 [History] busPIRone [Buspar] 5 mg PO BID 08/25/17 [History] Dicyclomine [Bentyl] 20 mg PO BID PRN 09/24/17 [History] Ciprofloxacin HCl [Cipro] 500 mg PO BID 10/15/17 [History] Past Medical History Gastrointestinal History: Reports: Diverticulosis, Irritable Bowel Syndrome, Other (See Below) Other Gastrointestinal History: 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 2016 by filter bed placer in [place], [place] Genitourinary History: Reports: None [employer] History: Reports: Psychiatric History: Reports: Anxiety, Depression, Panic Attack Dermatologic History: Reports: Eczema - Infectious Disease History Infectious Disease History: Reports: Chicken Pox - Past Surgical History GI Surgical History: Reports: Colonoscopy, EGD Female Surgical History: Reports: Tubal Ligation Dermatological Surgical History: Reports: None Social & Family History - Tobacco Use Smoking Status *Q: Current Every Day Smoker Years of Tobacco use: 15 Packs/Tins Daily: 0.5 Second Hand Smoke Exposure: Yes - Caffeine Use Caffeine Use: Reports: Coffee, Soda Other Caffeine Use: regular Caffeine Use Comment: did not ask - Recreational Drug Use Recreational Drug Use: Yes Drug Use in Last 12 Months: No Recreational Drug Type: Reports: Marijuana/Hashish Recreational Drug Use Frequency: Rarely ED ROS GENERAL - Review of Systems Review Of Systems: See Below Constitutional: Denies: Fever, Chills, Weakness HEENT: Reports: No Symptoms Respiratory: Denies: Shortness of Breath, Cough Cardiovascular: Denies: Chest Pain, Syncope Endocrine: Reports: No Symptoms GI/Abdominal: Reports: Abdominal Pain, Decreased Appetite (still decreased but improved from 3 days ago), Nausea, Vomiting. Denies: Anorexia, Black Stool, Bloody Stool, Constipation, Diarrhea : Denies: Dysuria, Flank Pain Musculoskeletal: Reports: No Symptoms Skin: Denies: Cyanosis, Jaundice, Mottled, Pallor, Diaphoresis Neurological: Denies: Confusion, Dizziness, Headache, Seizure, Syncope Psychiatric: Reports: Anxiety. Denies: Agitation, Confusion ED EXAM, GI/ABD - Physical Exam Exam: See Below Exam Limited By: No Limitations General Appearance: Alert, WD/WN, No Apparent Distress Eyes: Bilateral: Normal Appearance, EOMI Ears: Normal External Exam, Hearing Grossly Normal Nose: Normal Inspection, No Blood Throat/Mouth: Normal Inspection, Normal Lips, Normal Voice, No Airway Compromise Head: Atraumatic, Normocephalic Neck: Normal Inspection, Full Range of Motion Respiratory/Chest: No Respiratory Distress, Lungs Clear, Normal Breath Sounds, No Accessory Muscle Use Cardiovascular: Regular Rate, Rhythm, No Murmur GI/Abdominal Exam: Normal Bowel Sounds, Soft, No Organomegaly, No Distention, Tender (LLQ) Extremities: Normal Range of Motion Neurological: Alert, Oriented, Normal Cognition, No Motor/Sensory Deficits Psychiatric: Normal Affect, Anxious Skin Exam: Warm, Dry, Intact, Normal Color, No Rash Course - Vital Signs Last Recorded V/S: Last Vital Signs Temp 97.9 F 10/15/17 21:22 Pulse 102 H 10/15/17 21:22 Resp 16 10/15/17 21:22 BP 126/77 10/15/17 21:22 Pulse Ox 97 10/15/17 21:22 - Orders/Labs/Meds Meds: Medications Discontinued Medications Generic Name Dose Route Start Last Admin Trade Name Freq PRN Reason Stop Dose Admin Hydromorphone HCl 1 mg 10/15/17 22:35 10/15/17 22:44 Dilaudid IVPUSH 10/15/17 22:36 1 mg ONETIME ONE Administration Ketorolac Tromethamine 30 mg 10/15/17 21:28 10/15/17 21:30 Toradol IVPUSH 10/15/17 21:29 30 mg ONETIME ONE Administration Lorazepam 0.5 mg 10/15/17 21:36 10/15/17 21:50 Ativan IVPUSH 10/15/17 21:37 0.5 mg ONETIME ONE Administration Ondansetron HCl 8 mg 10/15/17 21:28 10/15/17 21:35 Zofran IVPUSH 10/15/17 21:29 8 mg ONETIME ONE Administration - Re-Assessments/Exams Free Text/Narrative Re-Assessment/Exam: 10/15/17 22:53 I reviewed the last ER note from 3 days ago along with the discussion with her GI specialist and recommendations. Symptoms are the same as last visit but now she is passing stool and gas and getting a little food intake. Toradol didn't provide relief. Zofran did relieve her nausea. She would like something more for the pain. I discussed with her that Dilaudid is going to provide only very temporary relief since she can't take narcotics at home (per GI). She said the combination of Dilaudid and Toradol 3 days ago provided her with good relief for the rest of the day and would like that again. This was done and patient is discharged to home with plans to call GI tomorrow as they requested. Departure - Departure Time of Disposition: 22:35 Disposition: Home, Self-Care 01 Condition: Good Clinical Impression: Exacerbation of Crohn's disease Qualifiers: Digestive disease complication type: with abscess Qualified Code(s): K50.914 - Crohn's disease, unspecified, with abscess - Discharge Information Forms: ED Department Discharge Additional Instructions: ED HPI GENERAL MEDICAL PROBLEM - General Chief Complaint: Abdominal Pain Stated Complaint: abd pain Time Seen by Provider: 10/15/17 21:10 Source of Information: Reports: Patient, Family (mom) History Limitations: Reports: No Limitations - History of Present Illness INITIAL COMMENTS - FREE TEXT/NARRATIVE: Patient presents with continuing LLQ abdominal pain related to Crohn's exacerbation. She was here 3 days ago with this and has been using the Tramadol and Zofran vs Promethazine but this evening the pain is worse. She has been passing small amounts of stool 5-6 times a day and eating a little mostly crackers and some pork roast. She has vomited a couple times too. Abdomen Pain Score (Numeric/FACES): 10 - Related Data Allergies Allergy/AdvReac Type Severity Reaction Status Date / Time metronidazole [From Flagyl] Allergy Nausea and Verified 10/15/17 20:58 Vomiting morphine Allergy Headache Verified 10/15/17 20:58 Home Meds: Home Meds Hydrocodone/Acetaminophen [Hydrocodon-Acetaminophn 10-325] 1 tab PO Q4H PRN 01/02 [History] Prednisone [IJD: predniSONE] 20 mg PO ASDIRECTED 07/22/17 [History] Promethazine [Phenergan] 25 mg PO Q4H PRN 07/22/17 [History] busPIRone [Buspar] 5 mg PO BID 08/25/17 [History] Dicyclomine [Bentyl] 20 mg PO BID PRN 09/24/17 [History] Ciprofloxacin HCl [Cipro] 500 mg PO BID 10/15/17 [History] Past Medical History Gastrointestinal History: Reports: Diverticulosis, Irritable Bowel Syndrome, Other (See Below) Other Gastrointestinal History: 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 2016 by filter bed placer in [place], [place] Genitourinary History: Reports: None [employer] History: Reports: Psychiatric History: Reports: Anxiety, Depression, Panic Attack Dermatologic History: Reports: Eczema - Infectious Disease History Infectious Disease History: Reports: Chicken Pox - Past Surgical History GI Surgical History: Reports: Colonoscopy, EGD Female Surgical History: Reports: Tubal Ligation Dermatological Surgical History: Reports: None Social & Family History - Tobacco Use Smoking Status *Q: Current Every Day Smoker Years of Tobacco use: 15 Packs/Tins Daily: 0.5 Second Hand Smoke Exposure: Yes - Caffeine Use Caffeine Use: Reports: Coffee, Soda Other Caffeine Use: regular Caffeine Use Comment: did not ask - Recreational Drug Use Recreational Drug Use: Yes Drug Use in Last 12 Months: No Recreational Drug Type: Reports: Marijuana/Hashish Recreational Drug Use Frequency: Rarely ED ROS GENERAL - Review of Systems Review Of Systems: See Below Constitutional: Denies: Fever, Chills, Weakness HEENT: Reports: No Symptoms Respiratory: Denies: Shortness of Breath, Cough Cardiovascular: Denies: Chest Pain, Syncope Endocrine: Reports: No Symptoms GI/Abdominal: Reports: Abdominal Pain, Decreased Appetite (still decreased but improved from 3 days ago), Nausea, Vomiting. Denies: Anorexia, Black Stool, Bloody Stool, Constipation, Diarrhea : Denies: Dysuria, Flank Pain Musculoskeletal: Reports: No Symptoms Skin: Denies: Cyanosis, Jaundice, Mottled, Pallor, Diaphoresis Neurological: Denies: Confusion, Dizziness, Headache, Seizure, Syncope Psychiatric: Reports: Anxiety. Denies: Agitation, Confusion ED EXAM, GI/ABD - Physical Exam Exam: See Below Exam Limited By: No Limitations General Appearance: Alert, WD/WN, No Apparent Distress Eyes: Bilateral: Normal Appearance, EOMI Ears: Normal External Exam, Hearing Grossly Normal Nose: Normal Inspection, No Blood Throat/Mouth: Normal Inspection, Normal Lips, Normal Voice, No Airway Compromise Head: Atraumatic, Normocephalic Neck: Normal Inspection, Full Range of Motion Respiratory/Chest: No Respiratory Distress, Lungs Clear, Normal Breath Sounds, No Accessory Muscle Use Cardiovascular: Regular Rate, Rhythm, No Murmur GI/Abdominal Exam: Normal Bowel Sounds, Soft, No Organomegaly, No Distention, Tender (LLQ) Extremities: Normal Range of Motion Neurological: Alert, Oriented, Normal Cognition, No Motor/Sensory Deficits Psychiatric: Normal Affect, Anxious Skin Exam: Warm, Dry, Intact, Normal Color, No Rash Course - Vital Signs Last Recorded V/S: Last Vital Signs Temp 97.9 F 10/15/17 21:22 Pulse 102 H 10/15/17 21:22 Resp 16 10/15/17 21:22 BP 126/77 10/15/17 21:22 Pulse Ox 97 10/15/17 21:22 - Orders/Labs/Meds Meds: Medications Discontinued Medications Generic Name Dose Route Start Last Admin Trade Name Freq PRN Reason Stop Dose Admin Ketorolac Tromethamine 30 mg 10/15/17 21:28 10/15/17 21:30 Toradol IVPUSH 10/15/17 21:29 30 mg ONETIME ONE Administration Lorazepam 0.5 mg 10/15/17 21:36 10/15/17 21:50 Ativan IVPUSH 10/15/17 21:37 0.5 mg ONETIME ONE Administration Ondansetron HCl 8 mg 10/15/17 21:28 10/15/17 21:35 Zofran IVPUSH 10/15/17 21:29 8 mg ONETIME ONE Administration Departure - Departure Time of Disposition: 22:35 Disposition: Home, Self-Care 01 Condition: Good Clinical Impression: Exacerbation of Crohn's disease Qualifiers: Digestive disease complication type: with abscess Qualified Code(s): K50.914 - Crohn's disease, unspecified, with abscess - Discharge Information Forms: ED Department Discharge 1. Continue your meds as directed. 2. Take the nausea medication regularly until this flare is resolving. 3. Call the GI provider tomorrow as discussed.
[2017-10-15] MEDS ORDERED: LORazepam 2 MG/ML MDV IVPUSH ONE (21:36)
[2017-10-15] MEDS ORDERED: HYDROmorphone 1 MG/ML Syringe IVPUSH ONE (22:35)
== END 2017-10-15 23:00 | disposition home or self-care (01) ==
LOC: KA.ED 20:55
DX: K50.914 Crohn's disease, unspecified, with abscess (principal); F17.210 Nicotine dependence, cigarettes, uncomplicated; Z88.5 Allergy status to narcotic agent; Z88.1 Allergy status to other antibiotic agents
CPT/HCPCS: 96374; 96375; 99283; J1170; J1885; J2060; J2405